=== PATIENT | male | born 1980 | race Caucasian/White ===

== ENCOUNTER 2019-09-26 10:59 | Emergency (ER) | payer BC ==
--- NOTE | 2019-09-26 11:21 | ER Document Report ---
ED Medical Screen (RME) - General Chief Complaint: General Weakness Stated Complaint: FALL/LEG PAIN Time Seen by Provider: 09/26/19 11:08 TRAVEL OUTSIDE OF THE [place] IN LAST 30 DAYS: No - HPI Notes: 09/26/19 11:17 Patient is a 39-year-old male with a history of hypertension and type 2 diabetes who presents with concern of bilateral numbness and tingling to his hands, forearms, knees, and toes/feet that has been present for 5 months w/o precipitating event or injury. Pt states that he does have generalized weakness associated with intermittent falls. Patient states that he is only had a couple x-rays performed and basic evaluation by the family doctor and chiropractic. Patient has not been seen by any neurologist or other specialist for this issue. No fever, chest pain, shortness of breath, abdominal pain. No headaches. I have treated and performed a rapid initial assessment of this patient. A comprehensive ED assessment and evaluation of the patient, analysis of test results and completion of medical decision making process will be conducted by additional ED providers. PHYSICAL EXAMINATION: GENERAL: Well-appearing, well-nourished and in no acute distress. A&Ox4. Answers questions appropriately. - Related Data Allergies/Adverse Reactions: No Known Allergies Allergy (Unverified 09/26/19 11:08) Home Medications: Metformin Physical Exam - Vital signs Vitals: Temp Pulse Resp BP Pulse Ox 98.4 F 109 H 17 175/100 H 98 09/26/19 11:02 09/26/19 11:02 09/26/19 11:02 09/26/19 11:02 09/26/19 11:02 Course - Vital Signs Vital signs: Temp Pulse Resp BP Pulse Ox 98.4 F 109 H 17 175/100 H 98 09/26/19 11:02 09/26/19 11:02 09/26/19 11:02 09/26/19 11:02 09/26/19 11:02
--- NOTE | 2019-09-26 12:15 | ER Document Report ---
ED General - General Chief Complaint: General Weakness Stated Complaint: FALL/LEG PAIN Time Seen by Provider: 09/26/19 11:08 Notes: CHIEF COMPLAINT: Numbness and tingling in all extremities progressive over 5 months HPI: 39-year-old type II diabetic male presenting to the emergency department complaining of 5 months of progressive numbness and tingling in all distal extremities. No incontinence of urine or bowel. Denies headache or vision change. Denies chest pain shortness of breath. Denies abdominal pain nausea vomiting or diarrhea. Patient complains of occasional weakness occasional falls. No specific trauma. Patient states he is seen his PCP, was given a cortisone injection for this without change in symptoms. Patient states that he goes to his chiropractor who also did not have a definitive reason for his symptoms. Patient states his last hemoglobin A1c was 6.4. ROS: See HPI - all other systems were reviewed and are otherwise negative Constitutional: no fever Eyes: no drainage, no blurred vision ENT: no runny nose, no sore throat Cardiovascular: no chest pain Resp: no SOB, no cough GI: no vomiting, no diarrhea, no abdominal pain : no dysuria Integumentary: no rash Allergy: no hives Musculoskeletal: + extremity pain Neurological: + numbness/tingling, + weakness MEDICATIONS: I agree with the patient medications as charted by the RN. ALLERGIES: I agree with the allergies as charted by the RN. PAST MEDICAL HISTORY/PAST SURGICAL HISTORY: Reviewed and agree as charted by RN. SOCIAL HISTORY: Reviewed and agree as charted by RN. FAMILY HISTORY: No significant familial comorbid conditions directly related to patient complaint EXAM: Reviewed vital signs as charted by RN. CONSTITUTIONAL: Alert and oriented and responds appropriately to questions. Well-appearing; well-nourished, no acute distress HEAD: Normocephalic; atraumatic EYES: PERRL; Conjunctivae clear, sclerae non-icteric ENT: normal nose; no rhinorrhea; moist mucous membranes; pharynx without lesions noted, no uvula edema or deviation, no tonsillar hypertrophy, phonation normal NECK: Supple without meningismus; non-tender; no cervical lymphadenopathy, no masses CARD: RRR; no murmurs, no clicks, no rubs, no gallops; symmetric distal pulses RESP: Normal chest excursion without splinting or tachypnea; breath sounds clear and equal bilaterally; no wheezes, no rhonchi, no rales, pulse oximetry 98% on room air not hypoxic ABD/GI: Normal bowel sounds; non-distended; soft, non-tender, no rebound, no guarding; no palpable organomegaly or masses. BACK: The back appears normal and is non-tender to palpation, there is no CVA tenderness EXT: Normal ROM in all joints; non-tender to palpation; no cyanosis, no effusions, no edema SKIN: Normal color for age and race; warm; dry; good turgor; no acute lesions noted NEURO: Moves all extremities equally; Motor and sensory function intact. Face symmetric. Tongue protrudes midline. Extraocular motions intact. Pupils are 3 mm and equally reactive. Normal speech, normal gait. 5 out of 5 strength in both the distal and proximal upper and lower extremities bilaterally. Sensation is grossly intact throughout although some subjective decrease in sensation in the distal fingertips bilaterally. Finger to nose testing normal. Pronator drift normal. DTRs 2+ intact and equal bilateral upper and lower extremities. PSYCH: The patient's mood and manner are appropriate. Grooming and personal hygiene are appropriate. MDM: 39-year-old male with 5 months of numbness tingling in the hands and feet as well as the knees bilateral. No specific back pain. No trauma. No incontin ence. His strength is completely intact bilateral upper and lower extremities. Subjective decrease sensation in the distal fingertips. I suspect he likely has diabetic neuropathy. It would be unusual to have a high-grade spinal lesion causing all of his symptoms without any incontinence issues. Patient has no proximal weakness on exam that would suggest Shoaib Lagunas. Screening labs ordered out of triage, if no acute abnormalities patient will be discharged on a trial of gabapentin and referred to neurology for follow-up TRAVEL OUTSIDE OF THE [place] IN LAST 30 DAYS: No - Related Data Allergies/Adverse Reactions: No Known Allergies Allergy (Unverified 09/26/19 11:08) Home Medications: Metformin Past Medical History - Social History Smoking Status: Unknown if Ever Smoked Family History: Reviewed & Not Pertinent Patient has suicidal ideation: No Patient has homicidal ideation: No Physical Exam - Vital signs Vitals: Temp Pulse Resp BP Pulse Ox 98.4 F 109 H 17 175/100 H 98 09/26/19 11:02 09/26/19 11:02 09/26/19 11:02 09/26/19 11:02 09/26/19 11:02 Course - Re-evaluation Re-evalutation: 09/26/19 13:34 No distress at this time. Patient did take his blood pressure medications here. Patient likely has diabetic neuropathy. I discussed this at length with him. His screening lab work does not show acute emergent abnormalities. Will trial on a course of gabapentin, follow-up with neurology for further evaluation of symptoms - Vital Signs Vital signs: Temp Pulse Resp BP Pulse Ox 97.8 F 109 H 20 158/90 H 98 09/26/19 13:01 09/26/19 11:02 09/26/19 13:01 09/26/19 13:01 09/26/19 13:01 - Laboratory Result Diagrams: 09/26/19 12:10 09/26/19 12:10 Laboratory results interpreted by me: 09/26/19 09/26/19 09/26/19 11:20 11:32 12:10 Chloride 97 L Glucose 210 H POC Glucose 195 H Hemoglobin A1c % Calcium 10.7 H Urine Protein 30 H Urine Glucose (UA) 50 H Urine Ascorbic Acid 20 H 09/26/19 12:10 Chloride Glucose POC Glucose Hemoglobin A1c % 8.0 H Calcium Urine Protein Urine Glucose (UA) Urine Ascorbic Acid Discharge - Discharge Clinical Impression: Neuropathy Condition: Stable Disposition: HOME, SELF-CARE Instructions: Neuropathy ([facility]) Additional Instructions: Take the medications as prescribed. Follow-up closely with both your primary care provider and with neurology for further evaluation and management call for appointment. Prescriptions: Gabapentin [Neurontin 100 mg Capsule] 100 mg PO TID #30 capsule Referrals: ANALI ZELAYA MD [[facility] STAFF] - Follow up as needed
[2019-09-26 12:40] LABS: ABSOLUTE EOSINOPHILS # (AUTO) 0.1 10^3/uL (0.0-0.6); ABSOLUTE MONOCYTES (AUTO) 0.5 10^3/uL (0.1-1.4); ABSOLUTE NEUT (AUTO) 5.6 10^3/uL (1.7-8.2); BASOPHILS % (AUTO) 0.5 % (0-2); EOSINOPHILS % (AUTO) 0.6 % (0-6); HEMATOCRIT 46.5 % (37.9-51.0); HEMOGLOBIN 16.2 g/dL (13.5-17.0); LYMPHOCYTES % (AUTO) 32.2 % (13-45); MEAN CORPUSCULAR HEMOGLOBIN 31.8 pg (27.0-33.4); MEAN CORPUSCULAR HGB CONC 34.9 g/dL (32.0-36.0); MEAN CORPUSCULAR VOLUME 91 fl (80-97); MONOCYTES % (AUTO) 5.2 % (3-13); PLATELET COUNT 227 10^3/uL (150-450); RED BLOOD COUNT 5.09 10^6/uL (4.35-5.55); RED CELL DISTRIBUTION WIDTH 13.5 % (11.5-14.0); SEGMENTED NEUTROPHILS % (AUTO) 61.5 % (42-78); TOTAL CELLS COUNTED % (AUTO) 100 %; WHITE BLOOD COUNT 9.2 10^3/uL (4.0-10.5)
[2019-09-26 12:45] LABS: APPEARANCE,URINE SLIGHTLY-CLOUDY; BILIRUBIN,URINE NEGATIVE (NEGATIVE); COLOR,URINE AMBER; GLUCOSE, URINE 50 mg/dL (NEGATIVE); KETONES,URINE NEGATIVE (NEGATIVE); PROTEIN,URINE 30 mg/dL (NEGATIVE); URINE SPECIFIC GRAVITY 1.018; UROBILINOGEN,URINE NEGATIVE mg/dL (<2.0)
[2019-09-26 12:51] LABS: ALBUMIN 4.9 g/dL (3.5-5.0); ALKALINE PHOSPHATASE 44 U/L (38-126); ANION GAP 11 (5-19); ASPARTATE AMINO TRANSFERASE 27 U/L (17-59); BILIRUBIN,DIRECT 0.3 mg/dL (0.0-0.4); BILIRUBIN,TOTAL 0.4 mg/dL (0.2-1.3); BLOOD UREA NITROGEN 12 mg/dL (7-20); CALCIUM 10.7 mg/dL (8.4-10.2); CARBON DIOXIDE 30 mmol/L (22-30); CHLORIDE 97 mmol/L (98-107); GLUCOSE 210 mg/dL (75-110); POTASSIUM 4.5 mmol/L (3.6-5.0); TOTAL PROTEIN 7.9 g/dL (6.3-8.2)
[2019-09-26 13:33] VITALS: BP 158/90
== END 2019-09-26 14:02 | disposition home or self-care (01) ==
LOC: ER 10:59
DX: E11.40 Type 2 diabetes mellitus with diabetic neuropathy, unspecified (principal); R20.0 Anesthesia of skin; R20.2 Paresthesia of skin; R53.1 Weakness; R29.6 Repeated falls
CPT/HCPCS: 36415; 80053; 81001; 82962; 83036; 84443; 85025; 99284